=== PATIENT | female | born 1985 | race Caucasian/White ===

== ENCOUNTER 2020-03-31 15:37 | Observation (INO) ==
[2020-03-31] MEDS ORDERED: *HR* OxyCODONE/APAP 5/325 TABLET PO ONE (16:13)
[2020-03-31] MEDS ORDERED: 0.9 % Sodium Chloride 1,000 ML IVC ONE (16:14)
[2020-03-31 16:56] LABS: Bilirubin,Urine Negative (Negative); Blood,Urine Negative (Negative); Clarity,Urine Clear (Clear); Color,Urine Yellow (Yellow); Glucose,Urine (UA) Normal (Normal); Hyaline Casts,Urine Few per lpf (None Seen); Ketones,Urine 20 mg/dL (Negative); Leukocyte Esterase,Urine Negative (Negative); Mucus,Urine Few per lpf (None-Few); Nitrite,Urine Negative (Negative); Protein,Urine 70 mg/dL (Neg-Trace); RBC,Urine 0-3 per hpf (0-3); Specific Gravity,Urine > 1.030 (1.010-1.025); Squamous Epithelial Cell,Urine Few per hpf (None-Few); Urobilinogen,Urine Normal (Normal); WBC,Urine 0-3 per hpf (0-3)
[2020-03-31 17:20] LABS: Basophils # 0.1 K/mcL (0.0-0.2); Basophils % 0.7 %; Eosinophils % 0.3 %; Hematocrit 44.6 % (35.3-44.9); Hemoglobin 14.3 g/dL (11.5-15.4); Lymphocytes # 3.1 K/mcL (0.6-4.6); Lymphocytes % 29.4 %; Mean Corpuscular HGB Conc 32.1 g/dL (31.6-35.5); Mean Corpuscular Hemoglobin 29.5 pg (28.0-33.3); Monocytes # 0.8 K/mcL (0.0-1.3); Monocytes % 7.8 %; Neutrophils # 6.4 K/mcL (1.6-8.9); Platelet Count 247 K/mcL (140-400); Red Blood Count 4.85 M/mcL (3.82-4.97); Red Cell Distribution Width 14.4 % (11.5-14.5); Segmented Neutrophils % 60.8 %; White Blood Count 10.6 K/mcL (4.3-11.1)
[2020-03-31 17:48] LABS: Alanine Aminotransferase 30 Units/L (7-52); Albumin 4.4 g/dL (3.5-5.7); Albumin/Globulin Ratio 1.5 (1.1-2.2); Alkaline Phosphatase 60 Units/L (34-104); Aspartate Amino Transferase 24 Units/L (13-39); BUN/Creatinine Ratio 14 (6-26); Bilirubin,Direct 0.1 mg/dL (0.0-0.2); Bilirubin,Indirect 0.4 mg/dL (0.0-1.0); Bilirubin,Total 0.5 mg/dL (0.3-1.0); Blood Urea Nitrogen 14 mg/dL (6-20); Calcium 9.5 mg/dL (8.6-10.3); Carbon Dioxide 15 mEq/L (23-29); Chloride 107 mEq/L (98-107); Globulin 2.9 g/dL (2.4-3.5); Glucose 148 mg/dL (70-105); Lipase 24 Units/L (11-82); Osmolality,Calculated 291 (280-300); Potassium 3.3 mEq/L (3.5-5.1); Sodium 139 mEq/L (136-145); Total Protein 7.3 g/dL (6.4-8.9); Troponin I < 0.03 ng/mL (< 0.04); eGFR For African Americans > 60 (> 60); eGFR For Non-African Americans > 60 (> 60)
[2020-03-31 17:49] LABS: Activated Partial Thrombo Time 29.3 Seconds (26.0-36.0); INR 1.1; Prothrombin Time 12.8 Seconds (9.4-12.1)
[2020-03-31] MEDS ORDERED: Isovue-370 500 ML BOTTLE IVP ONE (17:51)
[2020-03-31] MEDS ORDERED: Morphine Sulfate 2 MG/ML SYRINGE IVP ONE ×2 (17:52→20:26)
[2020-03-31 18:47] LABS: Adenovirus Not Detected (Not Detect); Bordetella Pertussis Not Detected (Not Detect); Chlamydophila pneumoniae Not Detected (Not Detect); Coronavirus 229E Not Detected (Not Detect); Coronavirus HKU1 Not Detected (Not Detect); Coronavirus NL63 Not Detected (Not Detect); Coronavirus OC43 Not Detected (Not Detect); Human Metapneumovirus Not Detected (Not Detect); Human Rhinovirus/Enterovirus Not Detected (Not Detect); Influenza A Subtype 2009 H1 Not Detected (Not Detect); Influenza B Not Detected (Not Detect); Mycoplasma pneumoniae Not Detected (Not Detect); Parainfluenza Virus 1 Not Detected (Not Detect); Parainfluenza Virus 2 Not Detected (Not Detect); Parainfluenza Virus 3 Not Detected (Not Detect); Parainfluenza Virus 4 Not Detected (Not Detect); Respiratory Syncytial Virus Not Detected (Not Detect); SARS-CoV-2 Not Detected (Not Detect)
[2020-03-31] MEDS ORDERED: Ondansetron 4 MG/2 ML VIAL IVP ONE (18:57)
[2020-03-31 19:10] LABS: VBG HCO3 20 mEq/L (21-27); VBG PCO2 32 mmHg (41-51); VBG PH 7.39 pH Units (7.32-7.42); VBG PO2 98 mmHg (25-50)
[2020-03-31] MEDS ORDERED: *HR* Enoxaparin 120 MG/0.8 ML SYRINGE SQ STA (20:51)
[2020-03-31] MEDS ORDERED: Aspirin 325 MG TABLET PO ONE (20:53)
[2020-03-31 21:43] LABS: Amphetamine Screen,Urine Negative ng/mL (Cutoff=1000); Barbiturate Screen,Urine Negative ng/mL (Cutoff=200); Benzodiazepines Screen,Urine Negative ng/mL (Cutoff=200); Cannabinoid Screen,Urine Negative ng/mL (Cutoff = 50); Cocaine Screen,Urine Negative ng/mL (Cutoff= 300); Opiate Screen,Urine Positive ng/mL (Cutoff=300); Phencyclidine Screen,Urine Negative ng/mL (Cutoff=25)
[2020-04-01] MEDS ORDERED: *HR* Metoprolol 5 MG/5 ML VIAL IVP ONE (00:12)
[2020-04-01] MEDS ORDERED: Ondansetron 4 MG/2 ML VIAL IVP PRN (00:18)
[2020-04-01] MEDS ORDERED: Naloxone 0.4 MG/ML INJ IVP PRN (00:18)
[2020-04-01] MEDS ORDERED: Potassium Chloride Elixir 20 MEQ/15 ML UDC PO ONE (00:22)
[2020-04-01] MEDS: Nitroglycerin 0.4 MG TAB.SUBL SL PRN ×4 (00:32→20:23)
[2020-04-01 01:21] LABS: Hematocrit 42.8 % (35.3-44.9); Mean Corpuscular HGB Conc 32.7 g/dL (31.6-35.5); Mean Corpuscular Hemoglobin 29.5 pg (28.0-33.3); Mean Corpuscular Volume 90.3 fL (83.0-100.0); Mean Platelet Volume 12.2 fL (9.4-12.4); Platelet Count 262 K/mcL (140-400); Red Blood Count 4.74 M/mcL (3.82-4.97); Red Cell Distribution Width 14.6 % (11.5-14.5); White Blood Count 11.6 K/mcL (4.3-11.1)
[2020-04-01 01:23] LABS: BUN/Creatinine Ratio 15 (6-26); Blood Urea Nitrogen 12 mg/dL (6-20); Calcium 9.3 mg/dL (8.6-10.3); Carbon Dioxide 15 mEq/L (23-29); Chloride 110 mEq/L (98-107); Chol/HDL Ratio 4.9 (0-4.9); Cholesterol 282 mg/dL (< 200); Glucose 155 mg/dL (70-105); HDL Cholesterol 58 mg/dL (40-59); LDL Cholesterol,Calculated 159 mg/dL (< 100); Magnesium 2.1 mg/dL (1.6-2.6); Osmolality,Calculated 295 (280-300); Phosphorous 2.9 mg/dL (2.7-4.5); Potassium 3.6 mEq/L (3.5-5.1); Sodium 141 mEq/L (136-145); Triglycerides 323 mg/dL (< 150); eGFR For African Americans > 60 (> 60); eGFR For Non-African Americans > 60 (> 60)
[2020-04-01] MEDS: cloNIDine HCL 0.1 MG TABLET PO SCH ×3 (01:37→21:28)
[2020-04-01 01:38] LABS: Thyroid Stimulating Hormone 6.208 mcIU/mL (0.340-5.600)
[2020-04-01] MEDS ORDERED: Perflutren Lipid Microsphere 1.3 ML in 0.9 % Sodium Chloride 8.7 ML IVP PRN (02:03)
[2020-04-01] MEDS ORDERED: *HR* Labetalol 20 MG/4 ML SYRINGE IVP ONE (03:41)
[2020-04-01] MEDS ORDERED: Acetaminophen 325 MG TABLET PO PRN (08:15)
[2020-04-01] MEDS ORDERED: Acetaminophen IV 500 MG/50 ML INFUS..BTL IVPB ONE (08:36)
[2020-04-01] MEDS: amLODIPine 5 MG TABLET PO SCH (08:42)
[2020-04-01] MEDS: Aspirin Enteric Coated 81 MG Tablet PO SCH (08:42)
[2020-04-01 09:03] LABS: Estimated Average Glucose 163 mg/dl
[2020-04-01] MEDS ORDERED: Dextrose Gel 15 GM/37.5 ML TUBE PO PRN ×2 (11:38)
[2020-04-01] MEDS ORDERED: *HR* Dextrose 50 % in Water (Vial) 50 ML VIAL IVP PRN (11:38)
[2020-04-01] MEDS ORDERED: D5% in Water 1,000 ML IVC PRN (11:38)
[2020-04-01] MEDS ORDERED: Morphine Sulfate 2 MG/ML SYRINGE IVP ONE ×2 (13:09→20:31)
[2020-04-01] MEDS ORDERED: *HR* Heparin 5,000 UNIT/ML VIAL IVP ONE (13:10)
[2020-04-01] MEDS ORDERED: *HR* Heparin 5,000 UNIT/ML VIAL IVP PRN ×2 (13:10)
[2020-04-01] MEDS ORDERED: Heparin 25,000UNIT/250ML 1/2NS 25,000 UNIT/250 ML IV.SOLN IVC SCH (13:15)
[2020-04-01] MEDS: Metoprolol XL (24 HR) Succ 50 MG TAB.ER.24H PO SCH ×2 (13:54→21:31)
[2020-04-01 14:01] LABS: Hematocrit 41.7 % (35.3-44.9); Hemoglobin 13.6 g/dL (11.5-15.4); Mean Corpuscular HGB Conc 32.6 g/dL (31.6-35.5); Mean Corpuscular Hemoglobin 29.7 pg (28.0-33.3); Mean Platelet Volume 11.8 fL (9.4-12.4); Platelet Count 216 K/mcL (140-400); Red Blood Count 4.58 M/mcL (3.82-4.97); Red Cell Distribution Width 14.6 % (11.5-14.5); White Blood Count 8.4 K/mcL (4.3-11.1)
[2020-04-01 15:25] LABS: Thyroid Stimulating Hormone 2.488 mcIU/mL (0.340-5.600)
[2020-04-01] MEDS: Isovue-370 500 ML BOTTLE IVP ONE (16:14)
[2020-04-01] MEDS: Insulin LISPRO 300 UNITS/3 ML VIAL SQ SCH (18:12)
[2020-04-01] MEDS: Sucralfate 1 GM TABLET PO SCH ×2 (18:14→21:26)
[2020-04-01] MEDS: Furosemide 20 MG TABLET PO SCH (18:14)
[2020-04-01 20:09] LABS: Prothrombin Time 11.6 Seconds (9.4-12.1)
[2020-04-01] MEDS: QUEtiapine Fumarate 100 MG TABLET PO SCH (21:29)
[2020-04-01] MEDS: Ranolazine 500 MG TAB.ER.12H PO SCH (21:30)
[2020-04-01] MEDS: Topiramate 25 MG TABLET PO SCH (21:30)
[2020-04-01] MEDS ORDERED: Pantoprazole 40 MG VIAL IVP ONE (21:39)
[2020-04-02 03:05] LABS: BUN/Creatinine Ratio 9 (6-26); Blood Urea Nitrogen 6 mg/dL (6-20); Calcium 8.9 mg/dL (8.6-10.3); Carbon Dioxide 20 mEq/L (23-29); Chloride 112 mEq/L (98-107); Glucose 115 mg/dL (70-105); Osmolality,Calculated 291 (280-300); Potassium 3.9 mEq/L (3.5-5.1); Sodium 141 mEq/L (136-145); eGFR For African Americans > 60 (> 60); eGFR For Non-African Americans > 60 (> 60)
[2020-04-02 04:50] LABS: Hematocrit 39.9 % (35.3-44.9); Mean Corpuscular HGB Conc 32.6 g/dL (31.6-35.5); Mean Corpuscular Volume 91.9 fL (83.0-100.0); Platelet Count 193 K/mcL (140-400); Red Blood Count 4.34 M/mcL (3.82-4.97); Red Cell Distribution Width 14.7 % (11.5-14.5); White Blood Count 6.4 K/mcL (4.3-11.1)
[2020-04-02] MEDS ORDERED: Regadenoson 0.4 MG/5 ML SYRINGE IVP ONE (06:48)
[2020-04-02] MEDS: Insulin LISPRO 300 UNITS/3 ML VIAL SQ SCH ×3 (07:28→17:56)
[2020-04-02] MEDS: *HR* OxyCODONE Immed Rel 5 MG TABLET PO PRN (11:07)
[2020-04-02] MEDS: Metoprolol XL (24 HR) Succ 50 MG TAB.ER.24H PO SCH ×2 (11:07→21:30)
[2020-04-02] MEDS: Topiramate 25 MG TABLET PO SCH ×2 (11:07→21:27)
[2020-04-02] MEDS: Ranolazine 500 MG TAB.ER.12H PO SCH ×2 (11:07→21:28)
[2020-04-02] MEDS: QUEtiapine Fumarate 100 MG TABLET PO SCH ×2 (11:08→21:27)
[2020-04-02] MEDS: cloNIDine HCL 0.1 MG TABLET PO SCH ×3 (11:08→21:27)
[2020-04-02] MEDS: amLODIPine 5 MG TABLET PO SCH (11:08)
[2020-04-02] MEDS: FLUoxetine 20 MG CAPSULE PO SCH (11:09)
[2020-04-02] MEDS: Furosemide 20 MG TABLET PO SCH ×3 (11:09→17:56)
[2020-04-02] MEDS: Aspirin Enteric Coated 81 MG Tablet PO SCH (11:09)
[2020-04-02] MEDS: tiZANidine 4 MG TABLET PO SCH (11:09)
[2020-04-02] MEDS: Sucralfate 1 GM TABLET PO SCH ×4 (11:12→21:30)
[2020-04-02] MEDS: *HR* Heparin 5,000 UNIT/ML VIAL SQ SCH (17:56)
[2020-04-03] MEDS: *HR* Heparin 5,000 UNIT/ML VIAL SQ SCH ×2 (05:12→17:28)
[2020-04-03 06:40] LABS: Hematocrit 40.7 % (35.3-44.9); Mean Corpuscular HGB Conc 31.9 g/dL (31.6-35.5); Mean Corpuscular Hemoglobin 29.7 pg (28.0-33.3); Mean Corpuscular Volume 93.1 fL (83.0-100.0); Mean Platelet Volume 11.9 fL (9.4-12.4); Platelet Count 195 K/mcL (140-400); Red Blood Count 4.37 M/mcL (3.82-4.97); Red Cell Distribution Width 14.9 % (11.5-14.5); White Blood Count 7.1 K/mcL (4.3-11.1)
[2020-04-03 06:58] LABS: Alanine Aminotransferase 74 Units/L (7-52); Albumin 3.9 g/dL (3.5-5.7); Albumin/Globulin Ratio 1.6 (1.1-2.2); Alkaline Phosphatase 62 Units/L (34-104); Aspartate Amino Transferase 42 Units/L (13-39); BUN/Creatinine Ratio 10 (6-26); Bilirubin,Total 0.4 mg/dL (0.3-1.0); Blood Urea Nitrogen 8 mg/dL (6-20); Calcium 8.9 mg/dL (8.6-10.3); Carbon Dioxide 21 mEq/L (23-29); Chloride 110 mEq/L (98-107); Globulin 2.4 g/dL (2.4-3.5); Glucose 123 mg/dL (70-105); Osmolality,Calculated 292 (280-300); Potassium 3.2 mEq/L (3.5-5.1); Sodium 141 mEq/L (136-145); Total Protein 6.3 g/dL (6.4-8.9); eGFR For African Americans > 60 (> 60); eGFR For Non-African Americans > 60 (> 60)
[2020-04-03] MEDS ORDERED: Regadenoson 0.4 MG/5 ML SYRINGE IVP ONE (07:59)
[2020-04-03] MEDS: Insulin LISPRO 300 UNITS/3 ML VIAL SQ SCH ×3 (09:38→17:17)
[2020-04-03] MEDS: QUEtiapine Fumarate 100 MG TABLET PO SCH ×2 (09:46→19:48)
[2020-04-03] MEDS: Aspirin Enteric Coated 81 MG Tablet PO SCH (09:46)
[2020-04-03] MEDS: amLODIPine 5 MG TABLET PO SCH (09:46)
[2020-04-03] MEDS: FLUoxetine 20 MG CAPSULE PO SCH (09:46)
[2020-04-03] MEDS: Sucralfate 1 GM TABLET PO SCH ×4 (09:46→19:52)
[2020-04-03] MEDS: cloNIDine HCL 0.1 MG TABLET PO SCH ×3 (09:46→19:47)
[2020-04-03] MEDS: tiZANidine 4 MG TABLET PO SCH (09:47)
[2020-04-03] MEDS: Topiramate 25 MG TABLET PO SCH ×2 (09:47→19:49)
[2020-04-03] MEDS: Furosemide 20 MG TABLET PO SCH ×3 (09:47→17:24)
[2020-04-03] MEDS: Metoprolol XL (24 HR) Succ 50 MG TAB.ER.24H PO SCH ×2 (09:47→19:48)
[2020-04-03] MEDS: Ranolazine 500 MG TAB.ER.12H PO SCH ×2 (09:48→19:49)
[2020-04-03] MEDS ORDERED: Ibuprofen 200 MG TABLET PO ONE (12:45)
[2020-04-03 13:22] LABS: Hepatitis B Surface Antigen Nonreactive (Nonreactive)
[2020-04-03 13:51] LABS: Hepatitis B Core IgM Nonreactive (Nonreactive)
[2020-04-03 13:52] LABS: Hepatitis C Virus Antibody Nonreactive (Nonreactive)
[2020-04-03 13:53] LABS: Hepatitis A Antibody IgM Nonreactive (Nonreactive)
[2020-04-03] MEDS: *HR* OxyCODONE Immed Rel 5 MG TABLET PO PRN (22:38)
[2020-04-04 04:26] LABS: Hematocrit 38.3 % (35.3-44.9); Hemoglobin 12.6 g/dL (11.5-15.4); Mean Corpuscular HGB Conc 32.9 g/dL (31.6-35.5); Mean Corpuscular Hemoglobin 30.3 pg (28.0-33.3); Mean Corpuscular Volume 92.1 fL (83.0-100.0); Mean Platelet Volume 11.7 fL (9.4-12.4); Platelet Count 169 K/mcL (140-400); Red Blood Count 4.16 M/mcL (3.82-4.97); Red Cell Distribution Width 14.8 % (11.5-14.5); White Blood Count 6.2 K/mcL (4.3-11.1)
[2020-04-04 04:37] LABS: Alanine Aminotransferase 56 Units/L (7-52); Albumin 3.8 g/dL (3.5-5.7); Albumin/Globulin Ratio 1.7 (1.1-2.2); Alkaline Phosphatase 49 Units/L (34-104); Aspartate Amino Transferase 28 Units/L (13-39); BUN/Creatinine Ratio 13 (6-26); Bilirubin,Total 0.4 mg/dL (0.3-1.0); Blood Urea Nitrogen 11 mg/dL (6-20); Calcium 8.9 mg/dL (8.6-10.3); Carbon Dioxide 19 mEq/L (23-29); Chloride 111 mEq/L (98-107); Globulin 2.2 g/dL (2.4-3.5); Glucose 123 mg/dL (70-105); Osmolality,Calculated 291 (280-300); Potassium 3.5 mEq/L (3.5-5.1); Sodium 140 mEq/L (136-145); eGFR For African Americans > 60 (> 60); eGFR For Non-African Americans > 60 (> 60)
[2020-04-04] MEDS: *HR* Heparin 5,000 UNIT/ML VIAL SQ SCH ×2 (05:28→17:07)
[2020-04-04] MEDS: Insulin LISPRO 300 UNITS/3 ML VIAL SQ SCH ×3 (07:32→17:23)
[2020-04-04] MEDS: tiZANidine 4 MG TABLET PO SCH (10:56)
[2020-04-04] MEDS: FLUoxetine 20 MG CAPSULE PO SCH (10:56)
[2020-04-04] MEDS: cloNIDine HCL 0.1 MG TABLET PO SCH ×3 (10:57→20:05)
[2020-04-04] MEDS: Aspirin Enteric Coated 81 MG Tablet PO SCH (10:58)
[2020-04-04] MEDS: Topiramate 25 MG TABLET PO SCH ×2 (10:59→20:05)
[2020-04-04] MEDS: Metoprolol XL (24 HR) Succ 50 MG TAB.ER.24H PO SCH ×2 (10:59→20:05)
[2020-04-04] MEDS: amLODIPine 5 MG TABLET PO SCH (11:00)
[2020-04-04] MEDS: Ranolazine 500 MG TAB.ER.12H PO SCH ×2 (11:01→20:06)
[2020-04-04] MEDS: QUEtiapine Fumarate 100 MG TABLET PO SCH ×2 (11:01→20:05)
[2020-04-04] MEDS: Furosemide 20 MG TABLET PO SCH ×3 (11:13→17:05)
[2020-04-04] MEDS: Sucralfate 1 GM TABLET PO SCH ×4 (11:14→23:11)
[2020-04-04 17:21] LABS: % Iron Saturation 17 % (15-50); Iron 53 mcg/dL (50-170); Transferrin 228 mg/dL (203-362)
[2020-04-04 17:38] LABS: Ferritin 33 ng/mL (10-120)
[2020-04-04] MEDS ORDERED: *HR* OxyCODONE Immed Rel 5 MG TABLET PO ONE (19:25)
[2020-04-05 01:40] LABS: Hematocrit 39.9 % (35.3-44.9); Hemoglobin 12.9 g/dL (11.5-15.4); Mean Corpuscular HGB Conc 32.3 g/dL (31.6-35.5); Mean Corpuscular Volume 92.8 fL (83.0-100.0); Mean Platelet Volume 12.2 fL (9.4-12.4); Platelet Count 174 K/mcL (140-400); Red Cell Distribution Width 14.7 % (11.5-14.5); White Blood Count 7.1 K/mcL (4.3-11.1)
[2020-04-05 01:49] LABS: Alanine Aminotransferase 53 Units/L (7-52); Albumin 3.9 g/dL (3.5-5.7); Albumin/Globulin Ratio 1.6 (1.1-2.2); Alkaline Phosphatase 57 Units/L (34-104); Aspartate Amino Transferase 40 Units/L (13-39); BUN/Creatinine Ratio 14 (6-26); Bilirubin,Total 0.5 mg/dL (0.3-1.0); Blood Urea Nitrogen 13 mg/dL (6-20); Calcium 9.5 mg/dL (8.6-10.3); Carbon Dioxide 18 mEq/L (23-29); Chloride 109 mEq/L (98-107); Globulin 2.5 g/dL (2.4-3.5); Glucose 123 mg/dL (70-105); Osmolality,Calculated 287 (280-300); Sodium 138 mEq/L (136-145); Total Protein 6.4 g/dL (6.4-8.9); eGFR For African Americans > 60 (> 60); eGFR For Non-African Americans > 60 (> 60)
[2020-04-05] MEDS: *HR* Heparin 5,000 UNIT/ML VIAL SQ SCH (05:30)
[2020-04-05] MEDS: Insulin LISPRO 300 UNITS/3 ML VIAL SQ SCH (07:35)
[2020-04-05] MEDS: Aspirin Enteric Coated 81 MG Tablet PO SCH (08:02)
[2020-04-05] MEDS: Furosemide 20 MG TABLET PO SCH (08:03)
[2020-04-05] MEDS: Sucralfate 1 GM TABLET PO SCH (08:03)
[2020-04-05] MEDS: cloNIDine HCL 0.1 MG TABLET PO SCH (08:03)
[2020-04-05] MEDS: FLUoxetine 20 MG CAPSULE PO SCH (08:04)
[2020-04-05] MEDS: Ranolazine 500 MG TAB.ER.12H PO SCH (08:05)
[2020-04-05] MEDS: QUEtiapine Fumarate 100 MG TABLET PO SCH (08:05)
[2020-04-05] MEDS: tiZANidine 4 MG TABLET PO SCH (08:07)
[2020-04-05] MEDS: Topiramate 25 MG TABLET PO SCH (08:07)
[2020-04-05] MEDS: amLODIPine 5 MG TABLET PO SCH (08:16)
[2020-04-05] MEDS: Metoprolol XL (24 HR) Succ 50 MG TAB.ER.24H PO SCH (08:17)
[2020-04-05 11:18] VITALS: BP 102/69
[2020-04-06 17:53] LABS: AFP Tumor Marker Non-Pregnant 5 ng/mL (0-9)
[2020-04-07 10:39] LABS: F-Actin (sm muscle) Ab IgG 4 Units (0-19)
== END 2020-04-05 13:58 | disposition home or self-care (01) ==
LOC: 3BNU 15:37 → EMEROOARM 15:37 → 3BNU 21:44
PROVIDERS: ADMIT Internal Medicine; ATTEND Internal Medicine